=== PATIENT | female | born 1975 | race Hispanic/Latino ===

== ENCOUNTER 2018-09-13 17:40 | Emergency (ER) | payer BC ==
[2018-09-13 17:48] VITALS: TEMP 99.4
--- NOTE | 2018-09-13 18:02 | RAD ---
EXAM: Chest,1 View CLINICAL INDICATION: Chest discomfort COMPARISON: There is no previous study for comparison. FINDINGS: A single view of the chest was obtained. The heart size is normal. The pulmonary vascularity is unremarkable. The lungs are clear. There is no consolidation, infiltrate, pleural effusion, or pneumothorax. IMPRESSION: Normal chest radiograph. Electronically signed by: Hardik Darnell MD 09/13/2018 6:00 PM CDT
--- NOTE | 2018-09-13 18:41 | ED.PDOC ---
History of Present Illness - General Chief Complaint: Chest Pain/IN Time Seen by Provider: 09/13/18 17:48 Source: patient, family Exam Limitations: no limitations - History of Present Illness Initial Comments: Patient presents with chest pain for three hours. Right sided, non-radiating, intermittent, sharp in nature, exacerbated by palpation and deep breathing, denies previous episodes. The patient said that she felt short of breath earlier today. She took a 6 hour car trip yesterday to attend a here in town. No history of DVT. She also has had N/V for 5 weeks. She got an upper endoscopy a nd colonoscopy last week. She says they only showed a colonic polyp which was removed for biopsy. She has had chronic midsternal chest pain that she says is from GERD. She takes Zantac and Nexium for that. No other complaints. Timing/Duration: 1-3 hours Severity: moderate Improving Factors: other - as in HPI Worsening Factors: other - as in HPI Associated Symptoms: denies symptoms Allergies/Adverse Reactions: Allergies NO KNOWN ALLERGY Allergy (Verified 09/13/18 17:42) Home Medications: Ambulatory Orders Promethazine Tab [Phenergan Tablet] 25 mg PO .Q4H #12 tab 09/13/18 Review of Systems - Review of Systems Constitutional: States: no symptoms reported EENTM: States: no symptoms reported Respiratory: States: see HPI Cardiology: States: see HPI Gastrointestinal/Abdominal: States: see HPI Genitourinary: States: no symptoms reported Musculoskeletal: States: no symptoms reported Skin: States: no symptoms reported Neurological: States: no symptoms reported Endocrine: States: no symptoms reported Hematologic/Lymphatic: States: no symptoms reported Past Medical History (General) - Patient Medical History Hx Stroke: No Hx Congestive Heart Failure: No Hx Diabetes: No Hx Gastroesophageal Reflux: - Recent endoscopy and colonoscopy Hx MRSA: No - Vaccination History Hx Tetanus, Diphtheria Vaccination: No Hx Influenza Vaccination: Yes - 2018 Hx Pneumococcal Vaccination: Yes - Social History Hx Tobacco Use: No Hx Alcohol Use: No - Female History Patient is a Female of Child Bearing Age (10 -59 yrs old): No Family Medical History - Family History Mother Living Status: Still Living Hx Family Hypertension: Yes Physical Exam - Physical Exam General Appearance: Alert Eye Exam: bilateral normal Ears, Nose, Throat: normal ENT inspection Neck: non-tender, full range of motion, supple Respiratory: lungs clear, normal breath sounds Cardiovascular/Chest: normal peripheral pulses, regular rate, rhythm, no edema Gastrointestinal/Abdominal: normal bowel sounds, non tender, soft Back Exam: normal inspection, no CVA tenderness Extremity: normal range of motion, non-tender, normal inspection 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, no motor/sensory deficits, alert, normal mood/affect, oriented x 3 Skin Exam: normal color Lymphatic: no adenopathy Progress - Progress Progress: 09/13/18 21:20 Laboratory Tests 09/13/18 09/13/18 09/13/18 17:49 18:36 20:20 WBC 8.1 RBC 4.71 Hgb 13.7 Hct 40.3 MCV 85.5 MCH 29.0 MCHC 34.0 RDW 13.9 Plt Count 308 MPV 7.9 Absolute Neuts (auto) 5.60 Absolute Lymphs (auto) 1.90 Absolute Monos (auto) 0.60 Absolute Eos (auto) 0.10 Absolute Basos (auto) 0.10 Neutrophils % 68.4 Lymphocytes % 23.3 Monocytes % 6.9 Eosinophils % 0.7 L Basophils % 0.7 PT 10.2 INR 1.02 PTT (SP) 27.3 D-Dimer, Quantitative 0.19 Sodium 139 Potassium 3.7 Chloride 105 Carbon Dioxide 24 Anion Gap 13.7 BUN 10 Creatinine 0.84 BUN/Creatinine Ratio 11.9 Random Glucose 112 H Serum Osmolality 277.3 Calcium 9.5 Magnesium 1.8 Creatine Kinase 36 CK-MB (CK-2) 0.4 CK-MB (CK-2) % Not Reportable Troponin I < 0.02 < 0.02 B-Natriuretic Peptide < 5.0 EKG showed sinus tachycardia , [id number], which resolved. No ST changes nor T wave inversions. No LBBB. Troponin x 2 negative. GI cocktail improved the patient's symptoms. She was given phenergan 25 mg po x one for nausea. She was instructed to see her pcp for a treadmill stress test. Care instructions given. E.R. warnings given. Questions were elicited and answered. Patient voiced understanding and agreement with the plan. Departure - Departure Clinical Impression: Chest pain Disposition: Discharge to Home or Self Care Condition: Good Departure Forms: ED Discharge - Pt. Copy, Patient Portal Self Enrollment Instructions: DI for Chest Pain Diet: low fat, low cholesterol Activity: increase activity as tolerated Prescriptions: Promethazine Tab [Phenergan Tablet] 25 mg PO .Q4H #12 tab Home Medications: Ambulatory Orders Promethazine Tab [Phenergan Tablet] 25 mg PO .Q4H #12 tab 09/13/18 Additional Instructions: See your regular doctor regarding treadmill stress testing. Return to the E.R. for worsening symptoms.
[2018-09-13] MEDS ORDERED: ASPIRIN TABLET 325 MG TAB PO ONE (19:23)
[2018-09-13] MEDS ORDERED: ALUM & MAG HYDROX-SIMETHICONE 30 ML, LIDOCAINE VISCOUS 2% 15 ML PO ONE ×2 (20:20)
[2018-09-13] MEDS ORDERED: ALUM & MAG HYDROX-SIMETHICONE 30 ML UD ONE (20:22)
[2018-09-13] MEDS ORDERED: LIDOCAINE HCL 2% (MOUTH-THROAT) 15 ML UD ONE (20:22)
[2018-09-13 21:07] VITALS: BP 121/86; O2SAT 99
[2018-09-13] MEDS ORDERED: PROMETHAZINE HCL 25 MG TAB PO ONE (21:23)
== END 2018-09-13 21:36 | disposition home or self-care (01) ==
LOC: ER 17:40
DX: R07.9 Chest pain, unspecified (principal); R00.0 Tachycardia, unspecified; K21.9 Gastro-esophageal reflux disease without esophagitis; Z79.899 Other long term (current) drug therapy
CPT/HCPCS: 36415; 71045; 80048; 82550; 82553; 83880; 84484; 85025; 85379; 85610; 85730; 93005; Q0169